=== PATIENT | female | born 2000 | race Caucasian/White ===

== ENCOUNTER 2022-04-26 04:36 | Inpatient (IN) ==
[2022-04-26] MEDS ORDERED: *HR* Nalbuphine 10 MG/ML AMPUL IV PRN (04:41)
[2022-04-26] MEDS ORDERED: Ondansetron 4 MG/2 ML VIAL IVP PRN (04:41)
[2022-04-26] MEDS ORDERED: Famotidine 20 MG/2 ML VIAL IVP PRN (04:41)
[2022-04-26] MEDS ORDERED: Naloxone 0.4 MG/ML INJ IVP PRN (04:41)
[2022-04-26] MEDS ORDERED: Azithromycin 500 MG in 0.9 % Sodium Chloride 250 ML IVPB PRN (04:41)
[2022-04-26] MEDS ORDERED: miSOPROStoL 25 MCG TABLET PO PRN (04:41)
[2022-04-26] MEDS ORDERED: Metoclopramide 10 MG/2 ML VIAL IVP PRN (04:41)
[2022-04-26] MEDS ORDERED: Oxytocin 30 UNIT/503 ML BAG IVC SCH (04:45)
[2022-04-26 05:15] LABS: Hematocrit 34.2 % (35.3-44.9); Immature Granulocytes % 0.6 % (0-4); Mean Corpuscular Volume 73.7 fL (83.0-100.0); Red Blood Count 4.64 M/mcL (3.82-4.97)
[2022-04-26 05:17] LABS: Basophils # 0.1 K/mcL (0.0-0.2); Basophils % 0.3 %; Eosinophils # 0.1 K/mcL (0.0-0.6); Eosinophils % 0.8 %; Hemoglobin 11.8 g/dL (11.5-15.4); Immature Platelets 17.9 % (1.1-6.1); Lymphocytes % 17.6 %; Mean Corpuscular HGB Conc 34.5 g/dL (31.6-35.5); Mean Corpuscular Hemoglobin 25.4 pg (28.0-33.3); Mean Platelet Volume 12.6 fL (9.4-12.4); Monocytes # 1.1 K/mcL (0.0-1.3); Monocytes % 6.5 %; Neutrophils # 12.6 K/mcL (1.6-8.9); Platelet Count 180 K/mcL (140-400); Red Cell Distribution Width 13.9 % (11.5-14.5); Segmented Neutrophils % 74.2 %
[2022-04-26 05:23] LABS: Amphetamine Screen,Urine Negative ng/mL (Cutoff=1000); Barbiturate Screen,Urine Negative ng/mL (Cutoff=200); Benzodiazepines Screen,Urine Negative ng/mL (Cutoff=200); Cannabinoid Screen,Urine Negative ng/mL (Cutoff = 50); Cocaine Screen,Urine Negative ng/mL (Cutoff= 300); Opiate Screen,Urine Negative ng/mL (Cutoff=300); Phencyclidine Screen,Urine Negative ng/mL (Cutoff=25)
[2022-04-26 05:37] LABS: Creatinine,Urine 111 mg/dL; Protein/Creatinine Ratio,Urine 0.31 mg/mg (0.00-0.20)
[2022-04-26 06:08] LABS: Alanine Aminotransferase 16 Units/L (7-52); Aspartate Amino Transferase 18 Units/L (13-39); BUN/Creatinine Ratio 6 (6-26); Blood Urea Nitrogen 5 mg/dL (6-20); Lactate Dehydrogenase 154 Units/L (140-271); Uric Acid 5.8 mg/dL (2.3-7.6); eGFR For African Americans > 60 (> 60); eGFR For Non-African Americans > 60 (> 60)
[2022-04-26] MEDS: Ringers Solution, Lactated 1,000 ML IVC SCH ×2 (09:38→20:10)
[2022-04-26] MEDS ORDERED: Epidural Premix (fent/bupiv) 110 ML EP SCH (10:30)
[2022-04-26] MEDS ORDERED: EPHEDrine 50 MG/ML VIAL IVP PRN (10:30)
[2022-04-26] MEDS ORDERED: *HR* FentaNYL (PF) 100 MCG/2 ML VIAL ONE (14:53)
[2022-04-26] MEDS ORDERED: Ropivacaine/PF 0.2% 20 ML VIAL ONE (14:53)
[2022-04-26] MEDS ORDERED: Acetaminophen 325 MG TABLET PO ONE (22:38)
[2022-04-27] MEDS ORDERED: cefOXitin 2,000 MG in 0.9 % Sodium Chloride Mini Bag 100 ML IVPB STA (00:56)
[2022-04-27] MEDS ORDERED: SODIUM CHLORIDE 0.9% IVPB STA (00:56)
[2022-04-27] MEDS ORDERED: GENTAMICIN IVPB STA (00:56)
[2022-04-27] MEDS ORDERED: Oxytocin 30 UNIT/503 ML BAG IVC SCH (05:54)
[2022-04-27] MEDS ORDERED: Lanolin 7 G OINT...G. TP PRN (05:54)
[2022-04-27] MEDS ORDERED: Ondansetron ODT 4 MG TAB.RAPDIS SL PRN (05:54)
[2022-04-27] MEDS ORDERED: Benzocaine/Menthol 56 GM AEROSOL SPRAY TP PRN (05:54)
[2022-04-27] MEDS ORDERED: Rho Immune Globulin 1,500 UNIT SYRINGE IM PRN (05:54)
[2022-04-27] MEDS ORDERED: OXYTOCIN/RINGERS LACTATE 10 UNIT/166.6 ML BAG IVC ONE (05:54)
[2022-04-27] MEDS: Acetaminophen 325 MG TABLET PO SCH ×3 (06:53→21:32)
[2022-04-27] MEDS: Ibuprofen 600 MG TABLET PO SCH ×3 (06:54→21:33)
[2022-04-27] MEDS: Prenatal Vit/FA 1 EACH TABLET PO SCH (08:14)
[2022-04-27 12:42] LABS: Hematocrit 28.8 % (35.3-44.9); Immature Platelets 18.5 % (1.1-6.1); Mean Corpuscular HGB Conc 34.7 g/dL (31.6-35.5); Mean Corpuscular Hemoglobin 25.8 pg (28.0-33.3); Mean Corpuscular Volume 74.2 fL (83.0-100.0); Mean Platelet Volume 13.4 fL (9.4-12.4); Platelet Count 146 K/mcL (140-400); Red Blood Count 3.88 M/mcL (3.82-4.97); White Blood Count 28.6 K/mcL (4.3-11.1)
[2022-04-27 13:02] LABS: Lymphocytes # 4.6 K/mcL (0.6-4.6); Monocytes # 2.9 K/mcL (0.0-1.3); Neutrophils # 21.2 K/mcL (1.6-8.9); Platelet Estimate Normal (Normal)
[2022-04-27 20:33] VITALS: TEMP 97.8
[2022-04-28] MEDS: Ibuprofen 600 MG TABLET PO SCH ×2 (04:35→12:34)
[2022-04-28] MEDS: Acetaminophen 325 MG TABLET PO SCH ×2 (04:36→12:35)
[2022-04-28 05:01] LABS: Basophils # 0.1 K/mcL (0.0-0.2); Basophils % 0.3 %; Eosinophils # 0.3 K/mcL (0.0-0.6); Eosinophils % 1.6 %; Hematocrit 27.1 % (35.3-44.9); Hemoglobin 9.4 g/dL (11.5-15.4); Immature Granulocytes % 0.7 % (0-4); Lymphocytes # 2.7 K/mcL (0.6-4.6); Lymphocytes % 14.6 %; Mean Corpuscular HGB Conc 34.7 g/dL (31.6-35.5); Mean Corpuscular Hemoglobin 25.5 pg (28.0-33.3); Mean Corpuscular Volume 73.6 fL (83.0-100.0); Mean Platelet Volume 12.6 fL (9.4-12.4); Monocytes # 1.1 K/mcL (0.0-1.3); Neutrophils # 14.3 K/mcL (1.6-8.9); Platelet Count 139 K/mcL (140-400); Red Blood Count 3.68 M/mcL (3.82-4.97); Segmented Neutrophils % 76.8 %; White Blood Count 18.6 K/mcL (4.3-11.1)
[2022-04-28 07:36] VITALS: BP 122/80; PULSE 81; O2SAT 99
[2022-04-28] MEDS: Prenatal Vit/FA 1 EACH TABLET PO SCH (08:04)
[2022-04-28 16:28] LABS: Bilirubin,Urine Negative (Negative); Blood,Urine Large (Negative); Clarity,Urine Turbid (Clear); Color,Urine Light-Yellow (Yellow); Glucose,Urine (UA) Normal (Normal); Ketones,Urine Negative (Negative); Leukocyte Esterase,Urine Negative (Negative); Mucus,Urine Few per lpf (None-Few); Nitrite,Urine Negative (Negative); Protein,Urine 30 mg/dL (Neg-Trace); RBC,Urine TNTC per hpf (0-3); Specific Gravity,Urine 1.028 (1.010-1.025); Squamous Epithelial Cell,Urine Few per hpf (None-Few); Urobilinogen,Urine Normal (Normal)
== END 2022-04-28 18:00 | disposition home or self-care (01) | DRG 560 ==
LOC: 1NENULAB 04:36 → 1NENUOBS 04-27 06:06
PROVIDERS: ADMIT Obstetrics & Gynecology; ATTEND Obstetrics & Gynecology